=== PATIENT | male | born 1965 | race Caucasian/White ===

== ENCOUNTER 2025-07-14 14:12 | Emergency (ER) | payer BC, SELFPAY ==
--- NOTE | 2025-07-14 14:13 | ED_ITS ---
HPI - General Adult General Chief complaint: Upper Respiratory Infection Stated complaint: Congestion/Cough Time Seen by Provider: 07/14/25 14:13 Source: patient Mode of arrival: ambulatory Limitations: no limitations History of Present Illness HPI narrative: 60-year-old male patient presents to the [facility] with complaints of cough and congestion runny nose for the past 3-4 days. Denies fevers body aches or chills. Denies any chest pain or shortness of breath. Denies any abdominal pain, nausea, vomiting or diarrhea. Patient states he has been taking Zyrtec for his symptoms. Related Data Home Medications ?Medication ?Instructions ?Recorded ?Confirmed ?Last Taken ?Type atorvastatin 20 mg tablet mg 07/14/25 Unknown History doxazosin 8 mg tablet mg 07/14/25 Unknown History Allergies Allergy/AdvReac Type Severity Reaction Status Date / Time No Known Allergies Allergy Mild Verified 07/14/25 14:13 Review of Systems Review of Systems: CONSTITUTIONAL: Denies fever, chills, or sweats. EYES: Denies visual changes, redness, or discharge. ENT: Positive rhinorrhea, congestion, denies sore throat, or otalgia. CARDIOVASCULAR: Denies chest pain, palpitations, or edema. RESPIRATORY: Positive cough denies dyspnea. GASTROINTESTINAL: Denies abdominal pain, nausea, vomiting, or diarrhea. GENITOURINARY: Denies dysuria or hematuria. SKIN: Denies rash or itching. MUSCULOSKELETAL: Denies back pain, joint pain, or myalgia. NEUROLOGIC: Denies headache, numbness, or weakness. PSYCHIATRIC: Denies anxiety or depression. REPLACED BY [facility] Past Medical History Medical History (Updated 07/14/25 @ 14:57 by BRIANDA Daniels) BPH (benign prostatic hyperplasia) Comments At the time of my signature I agree with nursing past medical history, surgical, social, and family history. There is no relevant family history pertinent to the presenting complaint. Exam Narrative: GENERAL: Well-appearing, well-nourished, and in no acute distress. HEAD: Normocephalic, atraumatic. EYES: PERRLA and EOMI. ENT: Nares with erythema edema noted bilaterally, no rhinorrhea or epistaxis. Mucous membranes moist. Posterior pharynx with no erythema, tonsillar enlargement, exudates or lesions present. There is some postnasal drip present to the posterior pharynx. Bilateral TMs are clear no erythema or foreign bodies the canal. NECK: Supple. No lymphadenopathy CHEST: Clear to auscultation. No respiratory distress. HEART: Regular rate and rhythm. No murmur heard. Normal peripheral pulses. ABDOMEN: Soft, nontender, nondistended, normal active bowel sounds. EXTREMITIES: Normal range of motion. No edema. SKIN: Warm, dry, no rash. NEURO: No focal deficits. Alert and oriented x3. Course Course Level of Care: Express Care Visit Vital Signs Vital signs: Vital Signs Temperature 36.6 C 07/14/25 14:23 Pulse Rate 96 07/14/25 14:23 Respiratory Rate 18 07/14/25 14:23 Blood Pressure 151/81 H 07/14/25 14:23 Pulse Oximetry 98 07/14/25 14:23 Oxygen Delivery Room Air 07/14/25 14:23 Temperature 36.6 C 07/14/25 14:23 Pulse Rate 96 07/14/25 14:23 Respiratory Rate 18 07/14/25 14:23 Blood Pressure 151/81 H 07/14/25 14:23 Pulse Oximetry 98 07/14/25 14:23 Oxygen Delivery Room Air 07/14/25 14:23 Vital signs reviewed. The patient has been informed that they may have pre-hypertension or Hypertension based on a BP reading in the department. I recommend that the patient call the primary care provider listed on their discharge instructions or a physician of their choice this week to arrange follow up for further evaluation of possible pre-hypertension or Hypertension Medical Decision Making MDM Narrative Medical decision making narrative: Discussed with patient that his point of care testing for influenza and COVID were both negative. Discussed with patient this is most likely a virus which should resolve on its own in about 5-10 days. Discussed with patient he can take some [id number] medication to help relieve his symptoms as well as warm salt water gargles, hot tea and honey for any sore throat pain, Tylenol and Motrin for any headaches or pain. Patient verbalized understanding denies any other questions or concerns at this time. Differential Diagnosis Differential Diagnosis: Differential diagnosis: Allergic rhinitis, chronic sinusitis, tonsillitis, acute sinusitis, infectious mononucleosis, seasonal influenza, pertussis, diphtheria, meningococcal disease, viral syndrome, viral bronchitis, RSV, COVID- 19 Vital Signs Vital Signs: Vital Signs Temperature 36.6 C 07/14/25 14:23 Pulse Rate 96 07/14/25 14:23 Respiratory Rate 18 07/14/25 14:23 Blood Pressure 151/81 H 07/14/25 14:23 Pulse Oximetry 98 07/14/25 14:23 Oxygen Delivery Room Air 07/14/25 14:23 Temperature 36.6 C 07/14/25 14:23 Pulse Rate 96 07/14/25 14:23 Respiratory Rate 18 07/14/25 14:23 Blood Pressure 151/81 H 07/14/25 14:23 Pulse Oximetry 98 07/14/25 14:23 Oxygen Delivery Room Air 07/14/25 14:23 Lab Data Labs: Lab Results 07/14/25 07/14/25 Range/Units 14:47 14:48 POC Influenza A Ag Negative (Negative) POC Influenza B Ag Negative (Negative) POC SARS CoV-2 Ag Negative (Negative) Critical Care Time Critical Care Time Critical Care Time: No Discharge Plan Discharge Clinical Impression: Viral URI with cough Patient Disposition: Home Condition: Stable Instructions: Antibiotic Form, Viral Syndrome (ED) Additional Instructions: Viral illness may last between 7-12days; antibiotic is NOT recommended at this time. Recommend antihistamine such as Benadryl at night time and Clarit in/Zyrtec/Yarelis during the day Cough syrup may cause drowsiness; avoid driving or take it at night time. Also, recommend symptomatic treatment includes: rest, fluids, and increase humidity of the air at home. Recommend Acetaminophen or nonsteroidal anti-inflammatory agents (NSAIDs) as directed in the bottle to reduce fever and/pain/headache. Avoid smoking/second-hand smoke. Limit visits to areas with large crowds. Please schedule a follow-up visit with your personal physician for further evaluation and treatment within 3-5days. Including recheck and discussion of your blood pressure. If your symptoms persist, change or worsen significantly before you can contact your personal physician then please, without delay, go to the emergency department for further evaluation. Patient Language: Kiswahili Prescriptions: No Action atorvastatin 20 mg tablet doxazosin 8 mg tablet Follow-up/Referrals: UNKNOWN,DOCTOR [Non-Staff] - Time of Disposition: 14:56
[2025-07-14 14:23] VITALS: BP 151/81; PULSE 96; RESP 18; TEMP 36.6; O2SAT 98
[2025-07-14 14:49] LABS: EDCOVIDSCREEN Negative (Negative)
[2025-07-14 14:49] LABS: EDINFLUASCREEN Negative (Negative); EDINFLUBSCREEN Negative (Negative)
== END 2025-07-14 15:05 | disposition home or self-care (01) ==
PROVIDERS: Emergency Provider Nurse Practitioner Family
DX: J06.9 Acute upper respiratory infection, unspecified (principal); Z20.822 Contact with and (suspected) exposure to COVID-19; N40.0 Benign prostatic hyperplasia without lower urinary tract symptoms
CPT/HCPCS: 87426; 87804; 99212; G0463